=== PATIENT | male | born 1965 | race Caucasian/White ===

== ENCOUNTER 2019-11-24 09:49 | Inpatient (IN) | payer MEDICAID ==
[2019-11-24] VITALS: BP 148/90
[~2019-11-24] VITALS: Ht 182.9 cm; Wt 74.8 kg
[2019-11-24] MEDS ORDERED: BUDE10.22 PO (10:30)
[2019-11-24] MEDS ORDERED: TRAM50TA2 PO (10:30)
[2019-11-24] MEDS ORDERED: BENZ200C53 PO (10:30)
[2019-11-24] MEDS ORDERED: AMLO2.5T4 PO (10:30)
[2019-11-24] MEDS ORDERED: TIOT18CA3 PO (10:30)
--- NOTE | 2019-11-24 10:30 | NUR ---
CURB HOP NOTES PATIENT ARRIVED IN UNIT [facility]IA [facility], RECEIVED REPORT FROM PALOMA ESCOBEDO FROM [facility]. PATIENT AWAKE, ALERT AND ORIENTED X3. PATIENT ABLE TO AMBULATE ON HIS OWN. BREATHING SLIGHTLY LABORED; PATIENT COUGHING; NON-PRODUCTIVE. PT ON 02 SAT PRN. PATIENT REQUESTED TO USE THE RESTROOM UPON ARRIVAL. TELE-MONITOR ATTACHED TO PATIENT, SINUS TACH 104. PT ADMITTED UNDER MEDICAL SUPERVISION OF OLIVER MANCILLA NON CATEGORICAL PRESCHOOL TEACHER, AWARE OF PT ARRIVAL, AWAITING ADMITTING ORDERS. WILL CONTINUE TO MONITOR.
[2019-11-24] MEDS ORDERED: ONDANSETRON HCL/PF 4 MG/2 ML VIAL IVP PRN (11:00)
[2019-11-24] MEDS ORDERED: ACETAMINOPHEN 325 MG TABLET PO PRN (11:00)
[2019-11-24] MEDS ORDERED: IPRATROPIUM BROMIDE 14 GM INHALER (or 12.9 GM) IH SCH (11:00)
[2019-11-24] MEDS ORDERED: FEE PK DOSING 1 MIN EA MC ONE (11:19)
[2019-11-24] MEDS ORDERED: TRAMADOL HCL 50 MG TABLET PO PRN (11:30)
[2019-11-24] MEDS ORDERED: AZITHROMYCIN 500 MG in IV D5W 250 ML IV SCH (11:30)
[2019-11-24] MEDS ORDERED: KETOROLAC TROMETHAMINE 10 MG TABLET PO PRN (11:30)
[2019-11-24] MEDS: PANTOPRAZOLE 40 MG VIAL IV SCH (11:41)
[2019-11-24] MEDS: methylPREDNISolone SOD SUCC 125 MG/2ML VIAL IV SCH ×2 (11:42→17:35)
[2019-11-24 12:00] VITALS: BP 157/100
[2019-11-24 12:21] LABS: BASOPHILS % (AUTO) 0.2 % (0.0-2.0); HEMATOCRIT 39 % (39-51); HEMOGLOBIN 12.5 g/dL (13.5-17.5); LYMPHOCYTES # (AUTO) 0.1 /CMM (0.8-4.8); LYMPHOCYTES % (AUTO) 2.4 % (20.0-44.0); MEAN CORPUSCULAR HGB CONC 32 g/dl (31.0-36.0); MEAN CORPUSCULAR VOLUME 82 fL (80-96); MONOCYTES # (AUTO) 0.3 /CMM (0.1-1.30); MONOCYTES % (AUTO) 4.9 % (2.0-12.0); NEUTROPHILS # (AUTO) 4.8 /CMM (1.8-8.9); NEUTROPHILS % (AUTO) 91.5 % (43.0-81.0); PLATELET COUNT (AUTO) 171 /CMM (150-450); RED BLOOD CELL COUNT(AUTO) 4.73 MIL/uL (4.5-6.0); WHITE BLOOD COUNT (AUTO) 5.2 K/uL (4.3-11.0)
[2019-11-24 12:32] LABS: CALCIUM, SERUM 8.3 mg/dL (8.5-10.1); CREATININE 0.6 mg/dL (0.6-1.3)
[2019-11-24 12:40] LABS: THYROID STIMULATING HORMONE 0.486 uIU/mL (0.358-3.74)
[2019-11-24 12:41] LABS: ALBUMIN 3.3 g/dL (3.4-5.0); BILIRUBIN,TOTAL 0.7 mg/dL (0.2-1.0); MAGNESIUM 1.9 mg/dL (1.8-2.4); PHOSPHORUS 2.9 mg/dL (2.5-4.9); TOTAL PROTEIN, SERUM 6.3 g/dL (6.4-8.2)
[2019-11-24] MEDS: VANCOMYCIN 1 GM in IV D5W 250 ML IV SCH ×2 (13:30→20:05)
[2019-11-24] MEDS ORDERED: BENZONATATE 100 MG CAPSULE PO PRN (13:30)
[2019-11-24 14:22] LABS: APPEARANCE,URINE CLEAR (CLEAR); BILIRUBIN,URINE NEGATIVE (NEGATIVE); BLOOD, URINE NEGATIVE Ery/uL (NEGATIVE); COLOR,URINE YELLOW (YELLOW); KETONES,URINE NEGATIVE (NEGATIVE); LEUKOCYTE ESTERASE ,URINE NEGATIVE (NEGATIVE); NITRITE, URINE NEGATIVE (NEGATIVE); PH,URINE 7.5 (5.0-8.0); PROTEIN,URINE NEGATIVE (NEGATIVE); UGLUCOSE NEGATIVE (NEGATIVE); UROBILINOGEN,URINE 0.2 EU/dL (0.2)
--- NOTE | 2019-11-24 14:54 | NUR ---
Social service consult requested by TERRENCE Quiroz for homelessness. Pt. is a 54 year old male directly admitted from [facility] for COPD Exacerbation. SHANTE met with the pt. bedside. Pt. is alert and oriented x 4. Pt. was sitting upright on his bed watching TV. Pt's mood is congruent. Pt. states he is homeless and has been for the past 2 years. Pt. is currently living in his car in [place]. Pt. receives food stamps but not GR. Pt. is currently in process of reinstating his GR. Pt. drinks alcohol (beer) 4 to 5 times a week. Pt. denies drug use and smokes a pack of cigarettes per day. Pt. denies any psychiatric diagnosis. SW offered pt. winter intermediate placement and homeless resources, however pt. declined. No other social service needs are requested at this time. Pt. will need a TAP card upon discharge. Homeless Patient waiver form will need to be signed upon discharge.
[2019-11-24 16:00] VITALS: BP 133/72
[2019-11-24] MEDS: ALBUTEROL FS 2.5 MG/0.5 ML VIAL.NEB NEB SCH ×3 (16:10→23:22)
[2019-11-24] MEDS: IPRATROPIUM NEB FS 0.5 MG/2.5 ML AMPUL.NEB NEB SCH ×3 (16:10→23:22)
[2019-11-24] MEDS: NICOTINE PATCH (14MG) 14 MG PATCH.TD24 TD SCH (18:55)
--- NOTE | 2019-11-24 18:56 | NUR ---
BEAD INSPECTOR NOTES PATIENT RESTING INSIDE ROOM. REMAINS A/O X 4. NO ACUTE DISTRESS. NO CHANGES IN LOC NOTED. PATIENT CALM AND RELAXED. PATIENT KEPT CLEAN, DRY AND COMFORTABLE. PROVIDED WITH CALM, SAFE, HAZARD-FREE ENVIRONMENT. CONTINUE ON TELEMETRY, ST 101. WILL ENDORSE TO INCOMING SHIFT FOR KENDY. BED LOCKED AND IN LOW POSITION. BILATERAL UPPER SIDE RAILS UP AND LOCKED. CALL LIGHT WITHIN EASY REACH
--- NOTE | 2019-11-24 19:45 | NUR ---
TROUBLE TRACER OPENING NOTE RECEIVED PATIENT IN BED. A/OX4. CURRENTLY TOLERATING ROOM AIR. RESPIRATIONS ARE EVEN AND UNLABORED. NO S/S SOB NOTED. DENIES PAIN AT THIS TIME. IN NO APPARENT DISTRESS. IV ACCESS IN LAC#18 PATENT AND SALINE LOCKED, WELL RAC#20 PATENT AND SALINE LOCKED. EXTERNAL TELE MONITOR READS SR - ST 80S - 120S. BED IS LOW AND LOCKED HOB ELEVATED IN SEMI FOWLERS POSITION, SIDE RIALS UP X2. CALL LIGHT WITHIN REACH. WILL CONTINUE TO MONITOR.
[2019-11-24 20:00] VITALS: BP 154/92
--- NOTE | 2019-11-24 22:15 | NUR ---
VIRTUALIZATION CONSULTANT NOTE CALLED MD TO NOTIFY HIM THAT WE DO NOT HAVE TORADOL PO. ASKED IF HE CAN CONVERT TO IV. MD TELEPHONE ORDER TO CONVERT TORADOL 10MG PO TO TORADOL 10MG IV. ORDER READ BACK NOTED AND CARRIED OUT.
[2019-11-24] MEDS: AZITHROMYCIN 500 MG in IV D5W 250 ML IV SCH (22:43)
[2019-11-24] MEDS: KETOROLAC TROMETHAMINE INJ 30 MG/ML VIAL IV PRN (22:44)
--- NOTE | 2019-11-24 23:08 | NUR ---
MOLD MECHANIC NOTE ADMINISTERED PRN TORADOL 10MG FOR PAIN 9/10 IN RIB SIDE/BACK. WILL CONTINUE TO MONITOR.
[2019-11-25] VITALS: BP 148/90
[2019-11-25 04:00] VITALS: BP 150/85
[2019-11-25] MEDS: VANCOMYCIN 1 GM in IV D5W 250 ML IV SCH ×3 (04:04→20:11)
[2019-11-25] MEDS: ALBUTEROL FS 2.5 MG/0.5 ML VIAL.NEB NEB SCH ×6 (04:05→22:57)
[2019-11-25] MEDS: IPRATROPIUM NEB FS 0.5 MG/2.5 ML AMPUL.NEB NEB SCH ×6 (04:05→22:58)
[2019-11-25] MEDS: KETOROLAC TROMETHAMINE INJ 30 MG/ML VIAL IV PRN ×3 (06:24→20:05)
--- NOTE | 2019-11-25 06:50 | NUR ---
THREAD WINDER NOTE ADMINISTERED PRN TORADOL 10MG FOR PAIN 8/10 IN LEFT SIDE/BACK. WILL CONTINUE TO MONITOR.
--- NOTE | 2019-11-25 06:52 | NUR ---
MANAGER PROGRAM MANAGEMENT CLOSING NOTE PATIENT IN BED. A/OX4. REMAINS TOLERATING ROOM AIR. RESPIRATIONS ARE EVEN AND UNLABORED. NO SOB NOTED. PAIN MANAGED WITH TORADOL 10MG IV PUSH. NO DISTRESS NOTED. IV ACCESS MAINTAINED IN LAC#18 PATENT AND SALINE LOCKED, WELL RAC#20 PATENT AND SALINE LOCKED. EXTERNAL TELE MONITOR READS SR - ST 80S - 120S. BED IS LOW AND LOCKED HOB ELEVATED IN SEMI FOWLERS POSITION, SIDE RIALS UP X2. CALL LIGHT WITHIN REACH. WILL ENDORSE TO NEXT SHIFT.
[2019-11-25 07:15] LABS: BASOPHILS % (AUTO) 0.2 % (0.0-2.0); HEMATOCRIT 37 % (39-51); HEMOGLOBIN 12.3 g/dL (13.5-17.5); LYMPHOCYTES # (AUTO) 0.7 /CMM (0.8-4.8); LYMPHOCYTES % (AUTO) 7.3 % (20.0-44.0); MEAN CORPUSCULAR HGB CONC 33 g/dl (31.0-36.0); MEAN CORPUSCULAR VOLUME 82 fL (80-96); MONOCYTES # (AUTO) 0.7 /CMM (0.1-1.30); MONOCYTES % (AUTO) 6.7 % (2.0-12.0); NEUTROPHILS # (AUTO) 8.8 /CMM (1.8-8.9); NEUTROPHILS % (AUTO) 85.8 % (43.0-81.0); PLATELET COUNT (AUTO) 163 /CMM (150-450); RED BLOOD CELL COUNT(AUTO) 4.58 MIL/uL (4.5-6.0); WHITE BLOOD COUNT (AUTO) 10.3 K/uL (4.3-11.0)
[2019-11-25 07:23] LABS: CALCIUM, SERUM 8.3 mg/dL (8.5-10.1); CREATININE 0.6 mg/dL (0.6-1.3); MAGNESIUM 2.2 mg/dL (1.8-2.4); PHOSPHORUS 3.5 mg/dL (2.5-4.9); POTASSIUM 3.6 mmol/L (3.5-5.1)
--- NOTE | 2019-11-25 07:38 | NUR ---
CHEMIST INTERNSHIP OPENING NOTES PATIENT RESTING IN BED, AWAKE, ALERT AND ORIENTED X3; BREATHING EVEN AND UNLABORED, PATIENT TOLERATING RA BUT IS AWARE HE IS ABLE TO USE 2L NC PRN IF HE FEELS HE IS HAVING DIFFICULTY BREATHING. NO SIGNS AND SYMPTOMS OF ACUTE RESPIRATORY DISTRESS NOTED. SAFETY PRECAUTIONS IN PLACE, BED IN LOWEST POSITION, LOCKED WITH UPPER SIDE RAILS UP X2, SEMI-FOWLERS; CALL LIGHT WITHIN EASY REACH. TELE MONITOR READS SINUS RHYTHM - SINUS TACH. WILL CONTINUE TO MONITOR.
[2019-11-25 08:00] VITALS: BP 140/83
[2019-11-25] MEDS ORDERED: NICOTINE PATCH (14MG) 14 MG PATCH.TD24 TD SCH (09:00)
[2019-11-25] MEDS ORDERED: TIOTROPIUM BROMIDE 6 CAP/BOX CAP.W.DEV IH SCH (09:00)
[2019-11-25] MEDS: methylPREDNISolone SOD SUCC 125 MG/2ML VIAL IV SCH (09:10)
[2019-11-25] MEDS: PANTOPRAZOLE 40 MG VIAL IV SCH (09:10)
[2019-11-25] MEDS: AMLODIPINE BESYLATE 2.5 MG TABLET PO SCH ×2 (09:14→09:19)
[2019-11-25] MEDS: NICOTINE PATCH (14MG) 14 MG PATCH.TD24 TD SCH (09:14)
--- NOTE | 2019-11-25 11:23 | NUR ---
MS RN NOTES PATIENT SEEN AND EXAMINED BY OLIVER MANCILLA NP. WITH NEW ORDER TO CHANGE SOLU MEDROL IV TO ONCE DAILY. VERIFIED THAT PATIENT ALREADY RECEIVED DOSE EARLIER THIS AM, NEXT DOSE TO START TOMORROW. ORDER NOTED AND CARRIED OUT. PHARMACY MADE AWARE. PATIENT MADE AWARE AND VERBALIZED UNDERSTANDING. WILL CONTINUE TO MONITOR
[2019-11-25] MEDS ORDERED: methylPREDNISolone SOD SUCC 40 MG/ML VIAL IV ONE (11:30)
--- NOTE | 2019-11-25 14:50 | NUR ---
MS RN NOTES PATIENT RAC #20 IV SITE REMOVED D/T LEAKING AT SITE; IV TIP STILL INTACT. IV REMOVED WITH NO ISSUES. PATIENT AWARE AND REQUESTED GAUZE AND PAPER TAPE DRESSING TO SECURE THE IV SITE FROM EXCESSIVE BLEEDING. PATIENT DENIES ANY PAIN. NO APPARENT DISTRESS NOTED AT THIS TIME. LAC #18 STILL DRY, INTACT AND PATENT. WILL CONTINUE TO MONITOR.
[2019-11-25 16:00] VITALS: BP 116/68
--- NOTE | 2019-11-25 18:36 | NUR ---
MS RN CLOSING NOTES PATIENT AWAKE, ALERT AND ORIENTED X4; PATIENT IS RESTING COMFORTABLY IN BED. BREATHING EVEN AND UNLABORED; NO S/S OF ACUTE RESPIRATORY DISTRESS. SAFETY PRECAUTIONS IN PLACE, BED LOCKED IN LOWEST POSITION, PATIENT SEMI-FOWLERS WITH UPPER SIDE RAILS UP X2. PATIENT REQUESTED SOME SNACKS. WILL ENDORSE CONTINUITY OF CARE TO ONCOMING SHIFT.
[2019-11-25 20:00] VITALS: BP 122/78
--- NOTE | 2019-11-25 20:00 | NUR ---
MS RN NOTES RECEIVED PATIENT AWAKE IN BED WITH NO DISTRESS NOTED. CALL LIGHT WITHIN REACH. PERIPHERAL LINE INTACT AND PATENT. WITH C/O GEN BODY PAIN 06/07, PRN TORADOL IV GIVEN. WILL CONTINUE TO MONITOR FOR EFFECTIVENESS. BED IN LOW LOCK SETTING. ROOM FREE OF CLUTTER AND ALL BELONGINGS KEPT NEAR BEDSIDE. WILL CONTINUE TO MONITOR.
[2019-11-25] MEDS: AZITHROMYCIN 500 MG in IV D5W 250 ML IV SCH (23:02)
[2019-11-26] MEDS: KETOROLAC TROMETHAMINE INJ 30 MG/ML VIAL IV PRN ×2 (02:14→08:50)
[2019-11-26] MEDS: ALBUTEROL FS 2.5 MG/0.5 ML VIAL.NEB NEB SCH ×3 (03:00→11:56)
[2019-11-26] MEDS: IPRATROPIUM NEB FS 0.5 MG/2.5 ML AMPUL.NEB NEB SCH ×3 (03:30→11:56)
[2019-11-26] MEDS: VANCOMYCIN 1 GM in IV D5W 250 ML IV SCH ×2 (04:15→12:00)
--- NOTE | 2019-11-26 07:20 | NUR ---
MS RN OPENING NOTES RECEIVED PT IN BED, AWAKE, A/O X3-4. PT TOLERATING RA, WITH NO ACUTE RESPIRATORY DISTRESS NOTED. PT DENIES ANY PAIN OR DISCOMFORT AT THIS TIME. PT ALSO DENIES CONCERNS OR QUESTIONS AT HE MOMENT. PIV TO RFA G22 SL, FLUSHED WITH NS, INTACT AND OPERATIONAL. PT KEPT COMFORTABLE. CALL LIGHT KEPT WITHIN REACH. PT'S BED IN LOWEST, LOCKED POSITION WITH SR X3. WILL CONTINUE PLAN OF CARE.
[2019-11-26 07:22] LABS: BASOPHILS % (AUTO) 0.5 % (0.0-2.0); EOSINOPHILS % (AUTO) 1.5 % (0.0-6.0); HEMATOCRIT 38 % (39-51); HEMOGLOBIN 12.4 g/dL (13.5-17.5); LYMPHOCYTES # (AUTO) 1.3 /CMM (0.8-4.8); LYMPHOCYTES % (AUTO) 16.6 % (20.0-44.0); MEAN CORPUSCULAR HGB CONC 32 g/dl (31.0-36.0); MEAN CORPUSCULAR VOLUME 83 fL (80-96); MONOCYTES # (AUTO) 0.6 /CMM (0.1-1.30); MONOCYTES % (AUTO) 7.3 % (2.0-12.0); NEUTROPHILS # (AUTO) 5.6 /CMM (1.8-8.9); NEUTROPHILS % (AUTO) 74.1 % (43.0-81.0); PLATELET COUNT (AUTO) 152 /CMM (150-450); RED BLOOD CELL COUNT(AUTO) 4.64 MIL/uL (4.5-6.0); WHITE BLOOD COUNT (AUTO) 7.6 K/uL (4.3-11.0)
--- NOTE | 2019-11-26 07:25 | NUR ---
MS RN NOTES PATIENT ASLEEP IN BED WITH NO DISTRESS NOTED. CALL LIGHT WITHIN REACH. ALL DUE MEDS GIVEN ORDERED WITH NO ASE. NO FURTHER C/O PAIN OR DISCOMFORT. PERIPHERAL LINE INTACT AND PATENT. BED IN LOW LOCK SETTING. ROOM FREE OF CLUTTER AND BELONGINGS KEPT NEAR BEDSIDE. WILL ENDORSE TO ONCOMING SHIFT.
[2019-11-26 07:37] LABS: CALCIUM, SERUM 8.1 mg/dL (8.5-10.1); CREATININE 0.6 mg/dL (0.6-1.3); MAGNESIUM 2.1 mg/dL (1.8-2.4); PHOSPHORUS 5.1 mg/dL (2.5-4.9); POTASSIUM 3.2 mmol/L (3.5-5.1)
[2019-11-26 08:00] VITALS: BP 119/84
[2019-11-26] MEDS: NICOTINE PATCH (14MG) 14 MG PATCH.TD24 TD SCH (08:21)
[2019-11-26] MEDS: PANTOPRAZOLE 40 MG VIAL IV SCH (08:21)
[2019-11-26 08:24] VITALS: BP 119/84
[2019-11-26] MEDS: AMLODIPINE BESYLATE 2.5 MG TABLET PO SCH (08:24)
[2019-11-26] MEDS ORDERED: methylPREDNISolone SOD SUCC 40 MG/ML VIAL IV SCH (09:00)
[2019-11-26] MEDS ORDERED: POTASSIUM CHLORIDE 20 MEQ TAB.PRT.SR PO ONE (10:00)
[2019-11-26] MEDS ORDERED: ALBU18HF2 INH (10:02)
[2019-11-26] MEDS ORDERED: AZIT500T4 PO (10:02)
[2019-11-26] MEDS ORDERED: METH4TAB3 PO (10:02)
--- NOTE | 2019-11-26 12:37 | NUR ---
MS FISH HATCHERY MAN NOTES PT IN BED, AWAKE, A/O X3-4. PT TOLERATING RA, WITH NO ACUTE RESPIRATORY DISTRESS NOTED. PT DENIES ANY PAIN OR DISCOMFORT AT THIS TIME. PT TO GO HOME, REFUSED SNF AND SIGNED HOMELESS WAIVER. DISCHARGE INSTRUCTION AND INVENTORY LIST, REVIEWED AND SIGNED BY PT. PIV TO RFA G22 REMOVED AND APPLIED DRY DRESSING. ALL NEEDS AND CARE ATTENDED. PICTURE OF BACK EXCORIATION TAKEN AND PLACED ON THE CHART. PT ESCORTED IN THE LOBBY BY KRANTHI. VITALS STABLE BEFORE DISCHARGE. PT LEFT THE UNIT AT 1235. CN/RENE AND HOSPITALIST/LW AWARE.
== END 2019-11-26 12:30 | disposition home or self-care (01) | DRG 140 ==
LOC: TELE 09:49 → MED 11-25 09:11
PROVIDERS: ADMIT Registered Nurse; ATTEND Registered Nurse
DX: J44.1 Chronic obstructive pulmonary disease with (acute) exacerbation (principal); E87.2 Acidosis; T17.990A Other foreign object in respiratory tract, part unspecified in causing asphyxiation, initial encounter; S22.31XA Fracture of one rib, right side, initial encounter for closed fracture; F17.210 Nicotine dependence, cigarettes, uncomplicated; I10 Essential (primary) hypertension; J98.11 Atelectasis; Z59.0 Homelessness; X58.XXXA Exposure to other specified factors, initial encounter; Y93.9 Activity, unspecified; Y92.89 Other specified places as the place of occurrence of the external cause
CPT/HCPCS: 36415; 71045-TC; 80048-TC; 80053-TC; 80061-TC; 80202-TC; 81000-TC; 83605-TC; 83735-TC; 84100-TC; 84443-TC; 85025-TC; 87040-TC; 87081-TC; 87086-TC; 94799-TC; C9113; G0378; J0456; J1885; J2920; J2930; J3370; J7050; J7060